=== PATIENT | male | born 1990 | race Caucasian/White ===

== ENCOUNTER 2025-05-12 06:06 | Day surgery (SDC) | payer SELFPAY ==
[2025-05-11 15:13] VITALS: BMI 32.4
[2025-05-12] MEDS ORDERED: Ropivacaine 0.5% HCl/PF (150 MG/30 ML VIAL) ONE (06:49)
[2025-05-12] MEDS ORDERED: Lidocaine 1% PF 5 ML VIAL ONE (06:58)
[2025-05-12] MEDS ORDERED: PROPOFOL 20 ML ONE (06:58)
[2025-05-12] MEDS ORDERED: fentaNYL PF 100 MCG/2 ML SYRINGE ONE ×2 (06:58→07:56)
[2025-05-12] MEDS ORDERED: CEFAZOLIN 2 GM VIAL ONE (07:25)
[2025-05-12] MEDS ORDERED: Ondansetron PF 4 MG/2 ML Vial ONE (07:56)
[2025-05-12] MEDS ORDERED: Ketorolac Tromethamine 30 MG (1 mL) VIAL ONE (09:22)
[2025-05-12] MEDS ORDERED: HYDROcodone/Acetaminophen 5/325 mg Tablet ONE (11:11)
== END 2025-05-12 12:06 | disposition home or self-care (01) ==
LOC: SDC 06:06
PROVIDERS: ATTEND Orthopaedic Surgery
PROC: 0QSH04Z Reposition Left Tibia with Internal Fixation Device, Open Approach (ICD-10-PCS; principal; 2025-05-12)
DX: S82.142A Displaced bicondylar fracture of left tibia, initial encounter for closed fracture (principal); V00.131A Fall from skateboard, initial encounter
CPT/HCPCS: C1713; C1889; J1100; J1885; J2250; J2272; J2405; J2704; J2795; J3010